=== PATIENT | female | born 2000 | race Hispanic/Latino ===

== ENCOUNTER 2021-01-29 19:20 | Emergency (ER) | payer BC, SELFPAY ==
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
[2021-01-29 19:40] VITALS: BP 169/90; PULSE 84; RESP 16; TEMP 37.1; O2SAT 100
== END 2021-01-29 19:46 | disposition home or self-care (01) ==
PROVIDERS: Emergency Provider Nurse Practitioner Family; PCP Pediatrics
DX: S41.151A Open bite of right upper arm, initial encounter (principal); Y04.1XXA Assault by human bite, initial encounter; Y99.0 Civilian activity done for income or pay
CPT/HCPCS: 99213; G0463

== ENCOUNTER 2022-06-22 10:44 | Emergency (ER) | payer BC, MEDICAID, SELFPAY ==
[2022-06-22 11:03] VITALS: BP 137/81; PULSE 75; RESP 18; TEMP 36.1; O2SAT 100
--- NOTE | 2022-06-22 11:40 | ED.URI ---
HPI - URI/Sore Throat General Chief Complaint: Ear Stated Complaint: congestion, ear pain Time Seen by Provider: 06/22/22 11:40 Source: patient, RN notes reviewed and old records reviewed Mode of arrival: ambulatory Limitations: no limitations History of Present Illness HPI Narrative: 21 year old female with complaints of sinus congestion drainage, facial pressure and frontal headache for the past 2 days. Patient reports that sister is also ill with similar symptoms. Patient reports that she has pressure clogged feeling to bilateral ears, some dry cough with no dyspnea noted. Patient denies any known fevers, chills or sweats or any body aches.Patient states she has had COVID vaccinations and Booster and flu shot. MD elicited complaint: cough, rhinorrhea, nasal congestion, sinus pain and other (headache frontal) Pertinent past history: seasonal allergies Onset (ago): day(s) (2) Treatments prior to arrival: acetaminophen and other (allergy med) Related Data Home Medications Medication Instructions Recorded Confirmed drospirenone 3 mg-ethinyl 1 tablet PO DAILY 01/29/21 06/22/22 estradiol 0.03 mg tablet Vitamin D3 1 tab-cap PO DAILY 06/22/22 06/22/22 Allergies Allergy/AdvReac Type Severity Reaction Status Date / Time No Known Drug Allergies Allergy Unknown Other Verified 06/22/22 10:53 Review of Systems Review of Systems: CONSTITUTIONAL: Denies fever, chills, or sweats. EYES: Denies visual changes, redness, or discharge. ENT: Positive for rhinorrhea, congestion, no sore throat, positive for pressure clogged feeling to bilateral ears. RESPIRATORY: Positive fro dry cough dennies any dyspnea. GASTROINTESTINAL: Denies abdominal pain, nausea, vomiting, or diarrhea. GENITOURINARY: Denies dysuria or hematuria. SKIN: Denies rash or itching. MUSCULOSKELETAL: Denies back pain, joint pain, or myalgia. NEUROLOGIC: Positive for frontal headache, no numbness, or weakness. PSYCHIATRIC: Denies anxiety or depression. All systems reviewed & are unremarkable except as noted in HPI and below PMFSH Past Medical History Medical History (Updated 06/23/22 @ 20:49 by Maryjo Casas NP) Fracture of fifth metatarsal bone of right foot Seasonal allergies Surgical History Surgical History (Updated 06/23/22 @ 20:46 by Maryjo Casas NP) No history of previous surgery Social History Social History (Updated 06/23/22 @ 20:43 by Maryjo Casas NP) Smoking status: Never smoker Alcohol intake: never Substance use: never Living arrangements: with family Gender identity (if verbalized by the patient): Female Comments At time of signature, agree with nursing past medical, surgical, social and family history. There is no relevant family history pertinent to the presenting complaint Exam Narrative: GENERAL: Well-appearing, well-nourished, and in no acute distress. HEAD: Normocephalic, atraumatic. EYES: PERRLA and EOMI. ENT: Nares mucous membranes red with clear rhinorrhea no epistaxis. Mucous membranes moist.TM's dull light reflex no redness noted, throat pink with no lesions or exudates or tonsil swelling post nasal drainage noted. Facial pressure under eyes and frontal headache NECK: Supple.no lymphadenopathy CHEST: Clear to auscultation. No respiratory distress.Dry cough with no dyspnea voiced, SAO2 100% on room air HEART: Regular rate and rhythm. No murmur heard. Normal peripheral pulses ABDOMEN: Soft, nontender, nondistended, normal active bowel sounds. EXTREMITIES: Normal range of motion. No edema. SKIN: Warm, dry, no rash. NEURO: No focal deficits. Alert and oriented x3. Course Course Level of Care: Express Care Visit Vital Signs Vital signs: Vital Signs Temperature 36.1 C L 06/22/22 11:03 Pulse Rate 75 06/22/22 11:03 Respiratory Rate 18 06/22/22 11:03 Blood Pressure 137/81 06/22/22 11:03 Pulse Oximetry 100 06/22/22 11:03 Oxygen Delivery Room Air 06/22/22 11:03 Temperature 36.1 C L
== END 2022-06-22 11:58 | disposition home or self-care (01) ==
PROVIDERS: Emergency Provider Registered Nurse; PCP Pediatrics
DX: J32.9 Chronic sinusitis, unspecified (principal)
CPT/HCPCS: 99213; G0463